=== PATIENT | female | born 1995 | race African-American/Black ===

== ENCOUNTER 2023-08-28 09:27 | Emergency (ER) | payer MEDICAID ==
[~2023-08-28] VITALS: Ht 177.8 cm; Wt 68.0 kg
[2023-08-28 09:33] VITALS: O2SAT 98
[2023-08-28] MEDS: SODIUM CHLORIDE 0.9% 1,000 ML IV ONE (10:14)
[2023-08-28 10:21] LABS: BASOPHILS % 0.6 % (0.0-2.0); EOSINOPHILS % 2.3 % (0.0-5.0); HEMATOCRIT. 36.3 % (36.0-48.0); HEMOGLOBIN. 11.8 g/dL (12.0-16.0); LYMPHOCYTES % 33.5 % (20.0-50.0); MEAN CORPUSCULAR HEMOGLOBIN 28.9 pg (28.0-32.0); MEAN CORPUSCULAR HGB CONC 32.5 g/dL (31.0-37.0); MEAN PLATELET VOLUME 7.7 fl (7.4-10.4); MONOCYTES % 6.7 % (2.0-8.0); NEUTROPHILS % 56.9 % (40.0-76.0); PLATELET 243 x1000/uL (130-400); RED BLOOD CELL COUNT 4.07 mill/uL (4.2-5.4); RED CELL DISTRIBUTION WIDTH 13.4 % (11.6-14.6)
[2023-08-28 10:27] LABS: CHLORIDE 107 mEq/L (98-107); POTASSIUM 4.5 mEq/L (3.5-5.1); SODIUM 139 mEq/L (136-145)
[2023-08-28 10:28] LABS: CALCIUM 8.4 mg/dL (8.7-10.4); CARBON DIOXIDE 27 mEq/L (21-32)
[2023-08-28 10:33] LABS: CREATININE 0.7 mg/dL (0.6-1.0); GLUCOSE 86 mg/dL (70-105); HCG SCREEN NEGATIVE; UREA NITROGEN BLOOD 7 mg/dL (9-23)
[2023-08-28 10:35] LABS: ALANINE AMINOTRANSFERASE < 7 IU/L (10-49); ALBUMIN 4.3 g/dL (3.2-4.8); ASPARTATE AMINOTRANSFERASE 15 IU/L (<34); BILIRUBIN TOTAL 0.3 mg/dL (0.1-1.0); PROTEIN TOTAL 7.6 g/dL (6.0-8.3)
[2023-08-28 11:19] VITALS: BP 121/81; PULSE 69; RESP 16; TEMP 98.6
== END 2023-08-28 11:22 | disposition home or self-care (01) ==
LOC: ER 09:27
DX: R55 Syncope and collapse (principal); F41.1 Generalized anxiety disorder; D72.819 Decreased white blood cell count, unspecified
CPT/HCPCS: 80053; 82962; 84703; 85025; 36415; 93005; 96360; 99284; J7030; Z7610 ×3